=== PATIENT | female | born 1950 | race Hispanic/Latino ===

== ENCOUNTER 2022-02-12 10:05 | Emergency (ER) | payer MEDICARE, OTHER ==
[2022-02-12] MEDS ORDERED: dexAMETHasone 4 MG/ML VIAL IM ONE (11:42)
[2022-02-12] MEDS ORDERED: CLINDAMYCIN 150 MG/ML VIAL 6 ML IM ONE (11:42)
--- NOTE | 2022-02-12 11:43 | Emergency Department Report ---
ED ENT HPI - General Chief complaint: Dental/Oral Stated complaint: FACE SWELLING/HEADACHE Time Seen by Provider: 02/12/22 11:41 Source: patient Mode of arrival: Ambulatory Limitations: No Limitations - History of Present Illness Initial comments: Patient is a pleasant 71-year-old female that comes to the ER with left-sided facial swelling and dental pain. She states that she had her bridge of her upper is worked on 2 months ago. She feels like that is where the pain is coming from. However, the swelling is over her left mandibular area. There is no trismus. No abscess. No Ludewig's. She is controlling secretions. She is taking p.o. She is ambulatory, not ill nontoxic on arrival to the ER. She denies fever or chills. MD complaint: tooth pain -: Gradual, days(s) Severity: moderate Severity scale (0 -10): 4 Quality: aching Consistency: constant Improves with: none Worsens with: none Context- Dental: history of dental caries, other (Dental work 2 months ago) Associated Symptoms: toothache. denies: fever, cough, gum swelling, pain with swallowing, sore throat, tinnitus, hearing loss, discharge from ear, rhinorrhea - Related Data Home Medications Medication Instructions Recorded Confirmed Last Taken Albuterol Mdi (or & Nicu Only) 2 puff IH QID PRN 04/28/15 11/18/20 Unknown [ProAir HFA Inhaler] AtorvaSTATin [Lipitor] 40 mg PO DAILY 04/28/15 11/18/20 04/27/15 Fluticasone/Salmeterol [Advair 1 inhalation INHALATION BID 04/28/15 11/18/20 04/28/15 Diskus 250-50 mcg] Isosorbide Mononitrate [Isosorbide 30 mg PO QAM 04/28/15 11/18/20 04/27/15 Mononitrate ER] Latanoprost 1 drop OU QHS 04/28/15 11/18/20 04/27/15 Metoprolol Tartrate 50 mg PO BID 04/28/15 11/18/20 04/27/15 Nitroglycerin [Nitrostat] 0.4 mg PO PRN PRN 04/28/15 11/18/20 Unknown cycloSPORINE [Restasis 0.05%] 1 drop OU BID 07/11/18/20 04/27/15 lisinopriL [Lisinopril] 5 mg PO DAILY 04/28/15 11/18/20 04/27/15 Previous Rx's Medication Instructions Recorded Last Taken Type Ascorbic Acid [Vitamin C] 500 mg PO BID #60 tablet 11/21/20 Unknown Rx Cholecalciferol Vit D3 [Vitamin D3 1,000 unit PO QDAY #30 tablet 11/21/20 Unknown Rx 1,000 UNIT TAB] Dexamethasone 6 mg PO DAILY #7 tablet 11/21/20 Unknown Rx Zinc Sulfate 220 mg PO DAILY #30 capsule 11/21/20 Unknown Rx Clindamycin [Clindamycin CAP] 300 mg PO Q8H #30 cap 02/12/22 Unknown Rx Allergies Allergy/AdvReac Type Severity Reaction Status Date / Time Penicillins Allergy Hives Verified 11/18/20 16:51 Sulfa (Sulfonamide Allergy Itching Verified 11/18/20 16:51 Antibiotics) iv dye Allergy Intermediate Shortness Uncoded 10/18/13 07:28 of Breath ED Dental HPI - General Chief complaint: Dental/Oral Stated complaint: FACE SWELLING/HEADACHE Time Seen by Provider: 02/12/22 11:41 Source: patient Mode of arrival: Ambulatory Limitations: No Limitations - Related Data Home Medications Medication Instructions Recorded Confirmed Last Taken Albuterol Mdi (or & Nicu Only) 2 puff IH QID PRN 04/28/15 11/18/20 Unknown [ProAir HFA Inhaler] AtorvaSTATin [Lipitor] 40 mg PO DAILY 04/28/15 11/18/20 04/27/15 Fluticasone/Salmeterol [Advair 1 inhalation INHALATION BID 04/28/15 11/18/20 04/28/15 Diskus 250-50 mcg] Isosorbide Mononitrate [Isosorbide 30 mg PO QAM 04/28/15 11/18/20 04/27/15 Mononitrate ER] Latanoprost 1 drop OU QHS 04/28/15 11/18/20 04/27/15 Metoprolol Tartrate 50 mg PO BID 04/28/15 11/18/20 04/27/15 Nitroglycerin [Nitrostat] 0.4 mg PO PRN PRN 04/28/15 11/18/20 Unknown cycloSPORINE [Restasis 0.05%] 1 drop OU BID 04/28/15 11/18/20 04/27/15 lisinopriL [Lisinopril] 5 mg PO DAILY 04/28/15 11/18/20 04/27/15 Previous Rx's Medication Instructions Recorded Last Taken Type Ascorbic Acid [Vitamin C] 500 mg PO BID #60 tablet 11/21/20 Unknown Rx Cholecalciferol Vit D3 [Vitamin D3 1,000 unit PO QDAY #30 tablet 11/21/20 Unknown Rx 1,000 UNIT TAB] Dexamethasone 6 mg PO DAILY #7 tablet 11/21/20 Unknown Rx Zinc Sulfate 220 mg PO DAILY #30 capsule 11/21/20 Unknown Rx Clindamycin [Clindamycin CAP] 300 mg PO Q8H #30 cap 02/12/22 Unknown Rx Allergies Allergy/AdvReac Type Severity Reaction Status Date / Time Penicillins Allergy Hives Verified 11/18/20 16:51 Sulfa (Sulfonamide Allergy Itching Verified 11/18/20 16:51 Antibiotics) iv dye Allergy Intermediate Shortness Uncoded 10/18/13 07:28 of Breath ED Review of Systems ROS: Stated complaint: FACE SWELLING/HEADACHE Other details as noted in HPI Comment: All other systems reviewed and negative ED Past Medical Hx - Past Medical History Previous Medical History?: Yes Hx Hypertension: Yes Hx GERD: Yes Hx Arthritis: Yes Hx Asthma: Yes - Surgical History Past Surgical History?: Yes Additional Surgical History: hysterectomy - Family History Family history: no significant - Social History Smoking Status: Never Smoker Substance Use Type: None - Medications Home Medications: Home Medications Medication Instructions Recorded Confirmed Last Taken Type Albuterol Mdi (or & Nicu Only) 2 puff IH QID PRN 04/28/15 11/18/20 Unknown History [ProAir HFA Inhaler] AtorvaSTATin [Lipitor] 40 mg PO DAILY 04/28/15 11/18/20 04/27/15 History Fluticasone/Salmeterol [Advair 1 inhalation INHALATION BID 04/28/15 11/18/20 04/28/15 History Diskus 250-50 mcg] Isosorbide Mononitrate [Isosorbide 30 mg PO QAM 04/28/15 11/18/20 04/27/15 History Mononitrate ER] Latanoprost 1 drop OU QHS 07/14/15 02/03/21 07/13/15 History Metoprolol Tartrate 50 mg PO BID 04/28/15 11/18/20 04/27/15 History Nitroglycerin [Nitrostat] 0.4 mg PO PRN PRN 04/28/15 11/18/20 Unknown History cycloSPORINE [Restasis 0.05%] 1 drop OU BID 04/28/15 11/18/20 04/27/15 History lisinopriL [Lisinopril] 5 mg PO DAILY 04/28/15 11/18/20 04/27/15 History Ascorbic Acid [Vitamin C] 500 mg PO BID #60 tablet 11/21/20 Unknown Rx Cholecalciferol Vit D3 [Vitamin D3 1,000 unit PO QDAY #30 tablet 11/21/20 Unknown Rx 1,000 UNIT TAB] Dexamethasone 6 mg PO DAILY #7 tablet 11/21/20 Unknown Rx Zinc Sulfate 220 mg PO DAILY #30 capsule 11/21/20 Unknown Rx Clindamycin [Clindamycin CAP] 300 mg PO Q8H #30 cap 02/12/22 Unknown Rx ED Physical Exam - General Limitations: No Limitations General appearance: alert, in no apparent distress - Head Head exam: Present: atraumatic, normocephalic - Eye Eye exam: Present: normal appearance - ENT ENT exam: Present: mucous membranes moist - Expanded ENT Exam Expanded Ear exam: Present: normal external inspection Mouth exam: Present: tongue normal. Absent: drooling, trismus, muffled voice, tongue elevation 1 - Fractured 2 - Other (Bridgework) 3 - Other (Area of swelling) - Neck Neck exam: Present: normal inspection - Respiratory Respiratory exam: Present: normal lung sounds bilaterally. Absent: respiratory distress - Cardiovascular Cardiovascular Exam: Present: regular rate, normal rhythm. Absent: systolic murmur, diastolic murmur, rubs, gallop - GI/Abdominal GI/Abdominal exam: Present: soft, normal bowel sounds - Extremities Exam Extremities exam: Present: normal inspection - Back Exam Back exam: Present: normal inspection - Neurological Exam Neurological exam: Present: alert, oriented X3 - Psychiatric Psychiatric exam: Present: normal affect, normal mood - Skin Skin exam: Present: warm, dry, intact, normal color. Absent: rash ED Course Vital Signs 02/12/22 11:26 Temperature 98.2 F Pulse Rate 78 Respiratory 18 Rate Blood Pressure 164/75 [Right] O2 Sat by Pulse 97 Oximetry ED Medical Decision Making - Medical Decision Making Vital Signs 02/12/22 11:26 Temperature 98.2 F Pulse Rate 78 Respiratory 18 Rate Blood Pressure 164/75 [Right] O2 Sat by Pulse 97 Oximetry Patient medicated with IM clinda. She is allergic to penicillin. Given Decadron and Motrin for pain. Patient has no abscess, Ludewig's, trismus. She is taking p.o. without difficulty. Patient is being discharged home with discharge plan of care including diet, activity, medications and follow-up. She verbalizes understanding of needing to see her dentist next week. Patient is ambulatory, not ill nontoxic on di scharge exam. - Differential Diagnosis Dental pain Critical care attestation.: If time is entered above; I have spent that time in minutes in the direct care of this critically ill patient, excluding procedure time. ED Disposition Clinical Impression: Pain, dental, Facial swelling, Fractured tooth Disposition: HOME / SELF CARE / HOMELESS Is pt being admited?: No Does the pt Need Aspirin: No Condition: Stable Instructions: Diet and Dental Disease Additional Instructions: Medication as ordered today. [id number] Tylenol Motrin for pain Follow-up with dentist next week so they can evaluate your bridgework. Let them know that you were seen in the ER and got an IM injection of clinda as well as being sent home on clindamycin Prescriptions: Clindamycin [Clindamycin CAP] 300 mg PO Q8H #30 cap Referrals: [facility] [Outside] - 3-5 Days [facility] [Outside] - 3-5 Days Time of Disposition: 12:18
[2022-02-12 14:13] VITALS: BP 136/86
== END 2022-02-12 13:00 | disposition home or self-care (01) ==
LOC: ED 10:05
DX: S02.5XXA Fracture of tooth (traumatic), initial encounter for closed fracture (principal); K08.89 Other specified disorders of teeth and supporting structures; R22.9 Localized swelling, mass and lump, unspecified; I10 Essential (primary) hypertension; M19.90 Unspecified osteoarthritis, unspecified site; J45.909 Unspecified asthma, uncomplicated; K21.9 Gastro-esophageal reflux disease without esophagitis; Z79.899 Other long term (current) drug therapy; X58.XXXA Exposure to other specified factors, initial encounter; Y93.89 Activity, other specified; Y92.89 Other specified places as the place of occurrence of the external cause; Y99.8 Other external cause status
CPT/HCPCS: 96372; 99282; J1100